=== PATIENT | female | born 1955 | race Caucasian/White ===

== ENCOUNTER 2016-11-07 05:37 | Day surgery (SDC) | payer BC ==
[2016-11-07] VITALS (14 sets, daily range): BP systolic 119–165; BP diastolic 55–98; PULSE 80–101; RESP 12–22; TEMP 97.5–98; O2SAT 93–100; Ht 162.6 cm; Wt 94.2 kg
[~2016-11-07] VITALS: Ht 162.6 cm; Wt 94.2 kg
[2016-11-07] MEDS ORDERED: CHOL200014 (06:05)
[2016-11-07 06:24] LABS: BASOPHILS % (AUTO) 0.4 % (0-2); EOSINOPHILS # (AUTO) 0.2 T/MM3 (0-0.5); EOSINOPHILS % (AUTO) 3.7 % (0-4); HCT - HEMATOCRIT 43.2 % (36-46); HGB - HEMOGLOBIN 13.4 GM/DL (12-16); LYMPHOCYTES # (AUTO) 1.3 T/MM3 (1-4.8); LYMPHOCYTES % (AUTO) 28.6 % (23-45); MEAN CORPUSCULAR HGB 29.6 UUG (26-34); MEAN CORPUSCULAR VOLUME 95.6 UM3 (80-100); MEAN PLATELET VOLUME 11.4 UM3 (9.4-12.4); MONOCYTES # (AUTO) 0.4 T/MM3 (0-0.8); MONOCYTES % (AUTO) 7.6 % (0-9.0); NEUTROPHILS #(AUTO)-ABSOLUTE 2.7 T/MM3 (1.8-7.7); NEUTROPHILS % (AUTO) 59.7 % (33-66); RED BLOOD COUNT 4.52 M/MM3 (4.00-5.20); WBC - WHITE BLOOD COUNT 4.6 T/MM3 (4.5-11.0)
[2016-11-07 06:34] LABS: ALBUMIN 4.1 G/DL (3.5-5.0); ALBUMIN/GLOBULIN RATIO 1.1 RATIO (1.1-2.2); ALKALINE PHOSPHATASE 66 U/L (38-126); ALT (SGPT) 32 U/L (9-52); ANION GAP 14 MEQ/L (5-15); AST (SGOT) 25 U/L (14-36); BUN/CREATININE RATIO 9 RATIO (6-26); CHLORIDE 106 MEQ/L (98-107); CO2 - CARBON DIOXIDE 26 MEQ/L (22-30); CREATININE 0.8 MG/DL (0.7-1.2); GLOMERULAR FILTRATION RATE 73; GLUCOSE 102 MG/DL (65-110); SODIUM 146 MEQ/L (134-144); TOTAL PROTEIN 7.7 G/DL (6.3-8.2)
[2016-11-07] MEDS ORDERED: BUPIVACAINE 0.25% (2.5mg/ml) INJ 30ml SDV ONE (06:47)
[2016-11-07] MEDS ORDERED: LIDOCAINE 1% (10mg/ml) 2ml SDV INJ ONE (07:00)
[2016-11-07] MEDS ORDERED: LR 1,000 ML IV SCH (07:00)
--- NOTE | 2016-11-07 07:08 | ANESPREOP ---
Anesthesia Record Date and Time DATE: 11/07/16 TIME: 07:06 Pre-Op Diagnosis uterine leiomyoma Proposed Surgical Procedure ROBOTIC ASSISTED LAP. HYST. WITH TUBES AND/OR OVARIES Allergies: Coded Allergies: Penicillins (Unverified Allergy, Unknown, UNKNOWN, 11/07/16) Sulfa (Sulfonamide Antibiotics) (Unverified Allergy, Unknown, UNKNOWN, 11/07) Ht/Wt/BMI Height: 5 ' 4.00 " Weight: 94.200 kg BMI: 35.7 kg/m2 Vital Signs Date Time Temp Pulse Resp B/P Pulse Ox O2 Delivery O2 Flow Rate FiO2 11/07/16 05:45 97.8 80 16 145/69 98 Room Air Medications Inpatient Medications Current Medications Medications (Trade) Dose Ordered Sig/Brayan Start Time Stop Time Status Last Admin Dose Admin Lactated Ringer's (Lactated Ringers) 1,000 ml @ 100 mls/hr Q10H 11/07/16 07:00 11/07/16 06:50 100 MLS/HR Cholecalciferol (Vitamin D3) (Vitamin D3) 2,000 Unit Tablet, (Reported) Last Taken: on 11/05/16 0700 Currently on Beta [place]: No Medical/Surgical History Anesthesia PMH: Reports: Obesity, Denies: Anesthesia Reactions (NO AIRWAY ISSUES KNOWN), Cancer, Clotting Problems, Glaucoma, Malignant Hyperthermia, Sleep Apnea Smoking Status: Never smoker Has pt. smoked today?: No Use Chewing Tobacco?: No Second Hand Exposure: No Substance Use Type: does not use Substance last used: unknown Alcohol Intake: rarely Last Drink: unknown HX of Last Menstrual Period: AGE 56 Past Surgical History Orthopedic Surgeries: Abdominal Surgeries: Genitourinary Surgeries: Cardiac Surgeries: Endocrine Surgeries: Reproductive Surgeries: Yes - LUMPECTOMY, JADON BREAST REDUCTION Neurological Surgeries: Ear Surgeries: Nose Surgeries: Throat Surgeries: Other Surgeries: Yes - COLONOSCOPY Anesthesia Adverse Reactions: FOUND none Family Hx of Anesthesia Advers: none Hx of Motion Sickness: No Pertinent Findings Laboratory Tests 11/07/16 06:10 Test 11/07/16 06:10 Human Chorionic Gonadotropin, Qual Negative (NEGATIVE) EKG Rhythm: Sinus Rhythm Physical Exam Respiratory: Bilat breath sounds equal, Lungs clear Cardiovascular: FOUND Regular rate, rhythm, FOUND No murmur Airway Assessment Mallampati Score: II TMD: 3 Fingerbreadths Neck Extension: Good Overall Assessment: No Airway Concerns ASA: 2 Plan Anesthesia Plan: GETA Discussion Discussed risks/options/alternatives of anesthesia and questions answered. Patient consents. Nursing pain assessment noted. Present: Friend Attestation Statement Prior to the delivery of any anesthetic medication, I examined the patient, developed the plan, obtained the patient's consent and discussed the risk and benefits of the procedure with the patient/guardian. SYD GARCIA CRNA Nov 07, 2016 07:08
[2016-11-07] MEDS ORDERED: LIDOCAINE 2% (20mg/ml) 5ml PF SDV ONE (07:13)
[2016-11-07] MEDS ORDERED: ROCURONIUM 50mg/5ml INJECTION IV ONE ×2 (07:13→08:07)
[2016-11-07] MEDS ORDERED: PROPOFOL 200mg 20 ML IV ONE (07:13)
[2016-11-07] MEDS ORDERED: GLYCOPYRROLATE 0.4mg/2ml INJECTION ONE (07:14)
[2016-11-07] MEDS ORDERED: ONDANSETRON 4mg/2ml INJECTION ONE (07:14)
[2016-11-07] MEDS ORDERED: HYDROMORPHONE 2mg/ml INJECTION IV PRN (07:15)
[2016-11-07] MEDS ORDERED: FENTANYL 250mcg/5ml INJECTION ONE (07:17)
[2016-11-07] MEDS ORDERED: MIDAZOLAM 2mg/2ml INJECTION ONE (07:18)
[2016-11-07] MEDS ORDERED: SEVOFLURANE 250 ML LIQUID IH ONE (07:59)
[2016-11-07] MEDS ORDERED: CEFOXITIN 1 GM IV ONE (08:00)
[2016-11-07] MEDS ORDERED: SUGAMMADEX 200 MG/2 ML INJECTION IV ONE (08:19)
--- NOTE | 2016-11-07 08:53 | GYNOPNOTE1 ---
REPLENISHMENT ASSOCIATE Postoperative Note Date of Operation: 11/07/16 Preoperative Dx Comments Fibroids, Enlarged uterus Postoperative Dx Comments Fibroids, enlarged uterus, severe pelvic adhesions with bowel adhesed, omentum adhesed to uterus, cervical stenosis Procedure: Dx Laparoscopy Surgeon: Daniel Brannon MD [employer] Surgeon: Mandi Torres MD Anesthesia Provider: Yohannes Daigle CRNA Anesthesia Type: general Estimated Blood Loss: 25cc Findings see op note and post op dx DANIEL BRANNON MD Nov 07, 2016 08:43
[2016-11-07] MEDS ORDERED: IBUPROFEN 200 MG TABLET PO PRN (09:00)
[2016-11-07] MEDS ORDERED: ONDANSETRON 4mg/2ml INJECTION IV PRN (09:00)
[2016-11-07] MEDS ORDERED: HYDROCODONE/APAP 5 mg/325 mg TABLET PO PRN (09:00)
--- NOTE | 2016-11-07 09:52 | ANESPO ---
Post-Op Note Date 11/07/16 Time: 09:51 Status Pt Participated in Evaluation: Pt participated in person Vital Signs Date Time Temp Pulse Resp B/P Pulse Ox O2 Delivery O2 Flow Rate FiO2 11/07/16 09:40 94 14 155/65 99 Room Air 11/07/16 09:24 98.0 11/07/16 08:50 5.00 Respiratory Function: Airway patent Cardiovascular Function: Regular pulse Mental Status: Alert/oriented Pain Level Intensity: 0 Hydration: Taking po fluids, IV infusing Complications during Recovery None apparent Post-Anesthesia Notes pt. manuel. well Follow-Up Instructions Instructions Per Surgeon Additional Information none SYD GARCIA CRNA Nov 07, 2016 09:52
--- NOTE | 2016-11-07 13:38 | OPNOTEF ---
DATE OF SURGERY: 11/07/16 PREOPERATIVE DIAGNOSIS: 51-year-old white female, G0, postmenopausal with enlarged uterus and uterine fibroids. POSTOPERATIVE DIAGNOSIS: Same, plus severe pelvic adhesions with bowel adhesed to the left side of uterus, omentum adhesed to the uterus, cervical stenosis, pelvic mass with adhesions to pelvic sidewall. PROCEDURE: Diagnostic laparoscopy (originally scheduled for robotic hysterectomy and BSO). SURGEON: Daniel Radford MD MMI TEACHER: Mandi Torres MD ANESTHESIA: General endotracheal by Yohannes Daigle CRNA EBL: 25 ml DESCRIPTION OF PROCEDURE After adequate general anesthesia and intubation, the patient was prepped and draped in the standard robotic position. The patient is a G0 and her vaginal tract was narrow. We used two Deavers to visualize the cervix and grasp it with a tenaculum, but we had difficulty opening the cervical stenosis and were unable to place a uterine manipulator. We went ahead and placed the laparoscopic ports above for robot. We started by placing the supraumbilical port 3 cm above the umbilicus. We anesthetized, then made the incision, then elevated and inserted a Veress needle and insufflated the abdomen to 15 mmHg. Then the Veress needle was removed and a 12 cm bladeless trocar was inserted in the usual fashion. Once it was in place, a camera was inserted to ensure that we had intraabdominal placement and no obvious injuries were seen. Then I placed a left 8 mm robotic port 11 cm lateral to midline on the left side. Then , with the camera in place and one port in place, I put in a grasper and attempted to identify and manipulate the uterus from above to help with placing the uterine manipulator from below. The omentum was adhesed to the uterus anteriorly, so we couldn't see the uterus anteriorly well. I went to the left side and bowel was adhesed to the uterus on the left side. On the right side, I was unable to see the adnexa and the uterus and fibroid were adhesed to the peritoneum on the sidewall. Anteriorly, the uterus was adhesed to the peritoneum and the abdominal wall around the bladder area. Findings were consistent with, best case scenario, bowel involvement with the uterus and a semi-frozen pelvis perhaps from previous endometriosis and, a worse case scenario, possible cancer. Based on these findings, I made the decision not to proceed with an open case but rather to stop this case at the level of a diagnostic laparoscopy and send the patient to [place] for an open case with a gynecologic oncologist to where if staging would be needed they would be able to do that at that point in time. So the tenaculum and other Deavers were removed vaginally by Dr. Torres and I took pictures of the abdomen, although after we closed when they printed out the pictures they were all blurry and difficult to identify, but they were clear on the screen when we took them. I then allowed CO2 to escape from the abdomen and then closed the skin with 3-0 Vicryl in a subcuticular fashion and then placed a couple of stitches in a simple interrupted fashion over the left robotic port incision. The patient went to recovery room in stable condition. ANAM
== END 2016-11-07 11:08 | disposition home or self-care (01) ==
LOC: SCU 05:37 → SRG 05:38 → SCU 11:08
PROVIDERS: ATTEND Obstetrics & Gynecology
DX: N73.6 Female pelvic peritoneal adhesions (postinfective) (principal); N88.2 Stricture and stenosis of cervix uteri; D25.9 Leiomyoma of uterus, unspecified; N85.2 Hypertrophy of uterus; Z88.0 Allergy status to penicillin; Z88.2 Allergy status to sulfonamides
CPT/HCPCS: 36415; 49320; 80053; 84703; 85025; 86850; 86900; 86901; J0694; J2250; J2405; J2704; J3010; J7120; S0020